=== PATIENT | female | born 1995 | race Caucasian/White ===

== ENCOUNTER 2023-09-25 16:13 | Outpatient (RCR) | payer OTHER, SELFPAY | END 2023-09-25 23:59 | disposition home or self-care (01) | LOC: RPT 16:13 | PROVIDERS: ATTENDING PHYSICIAN Advanced Practice Midwife; FAMILY PHYSICIAN Nurse Practitioner | DX: M54.50 Low back pain, unspecified (principal); Z73.6 Limitation of activities due to disability; Z33.1 Pregnant state, incidental; R10.2 Pelvic and perineal pain | CPT/HCPCS: 97110; 97112; 97162; 97530 ==

== ENCOUNTER 2023-10-09 10:06 | Outpatient (RCR) | payer OTHER, SELFPAY | END 2023-10-09 23:59 | disposition home or self-care (01) | LOC: RPT 10:06 | PROVIDERS: ATTENDING PHYSICIAN Advanced Practice Midwife; FAMILY PHYSICIAN Nurse Practitioner | DX: M54.50 Low back pain, unspecified (principal); R10.2 Pelvic and perineal pain; Z73.6 Limitation of activities due to disability; Z33.1 Pregnant state, incidental | CPT/HCPCS: 97110; 97112 ==

== ENCOUNTER 2023-11-26 19:55 | Inpatient (IN) | payer OTHER, SELFPAY ==
[2023-11-26 20:21] VITALS: BP 132/82; BMI 28.6
[2023-11-26] MEDS: LR 1000 IV (20:40)
[2023-11-26 20:49] LABS: % Basophils 0.1 % (0-2); % Eosinophils 0.2 % (0-6); % Immature Granulocytes 0.3 % (0-0.5); % Lymphocytes 15.8 % (20.5-51.1); % Monocytes 6.1 % (1.7-9.3); % Neutrophils 77.5 % (42.2-75.2); Absolute Lymphocytes 1.4 10^3/uL (1.2-3.4); Absolute Monocytes 0.6 10^3/uL (0.1-0.6); Absolute Neutrophils 7.1 10^3/uL (1.4-6.5); Hematocrit 33.8 % (37.0-47.0); Hemoglobin 12.2 g/dL (12.0-16.0); Mean Corp Hgb Conc. 36.1 g/dL (33.0-37.0); Mean Corpuscular Hgb 29.7 pg (27.0-31.0); Mean Corpuscular Volume 82.2 fL (81.0-99.0); Mean Platelet Volume 10.4 fL (7.4-10.4); Nucleated Red Blood Cells % 0 %; Platelet Count 166 10^3/uL (130-400); Red Blood Cell Count 4.11 10^6/uL (4.20-5.40); Red Cell Dist. Width 13.1 % (11.5-14.5); White Blood Cell Count 9.1 10^3/uL (4.8-10.8)
[2023-11-27] MEDS: LR 1000 IV (00:15)
[2023-11-27] MEDS: PITOCIN 30 UNITS/NSS 500 ML IV (00:15)
[2023-11-27] MEDS: SUBLIMAZE 100 MCG EPIDURAL (00:58)
[2023-11-27] MEDS: FENTANYL/BUPIVACAINE 100 EPIDURAL (00:58)
[2023-11-27] MEDS: TYLENOL 650 MG PO ×2 (10:48→17:07)
[2023-11-27] MEDS: MOTRIN 600 MG PO ×2 (10:48→17:06)
[2023-11-27] MEDS: LEXAPRO PO (17:05)
[2023-11-27] MEDS: PRENATAL PLUS PO (17:05)
[2023-11-27] MEDS: SENOKOT-S 1 TABLET PO (17:06)
[2023-11-28] MEDS: MOTRIN 600 MG PO ×3 (01:02→14:45)
[2023-11-28] MEDS: TYLENOL 650 MG PO ×3 (01:03→14:46)
[2023-11-28] MEDS: SENOKOT-S 1 TABLET PO (09:21)
[2023-11-28] MEDS: PRENATAL PLUS 1 TABLET PO (09:25)
[2023-11-28] MEDS: LEXAPRO 10 MG PO (09:25)
[2023-11-29 12:09] LABS: Syphilis/T. pallidum Ab Reflex Negative (Negative)
== END 2023-11-28 17:17 | disposition home or self-care (01) | DRG 807 ==
LOC: LDRP 19:55
PROVIDERS: ADMITTING PHYSICIAN Obstetrics & Gynecology; FAMILY PHYSICIAN Nurse Practitioner
PROC: 0KQM0ZZ Repair Perineum Muscle, Open Approach (ICD-10-PCS; 2023-11-27)
PROC: 10E0XZZ Delivery of Products of Conception, External Approach (ICD-10-PCS; 2023-11-27)
DX: O48.0 Post-term pregnancy (principal); Z37.0 Single live birth; Z3A.40 40 weeks gestation of pregnancy; O70.1 Second degree perineal laceration during delivery; K64.9 Unspecified hemorrhoids; O99.344 Other mental disorders complicating childbirth; F41.9 Anxiety disorder, unspecified
CPT/HCPCS: 36415; 85014; 85018; 85025; 86780; 86850; 86900; 86901